=== PATIENT | female | born 1975 | race Caucasian/White ===

== ENCOUNTER → 2017-03-03 | Outpatient (REF) | payer BC | LOC: M LAB REF 12:52 | DX: R30.0 Dysuria (principal) | CPT/HCPCS: 87086 ==

== ENCOUNTER → 2018-01-12 | Outpatient (CLI) | payer BC ==
[2018-01-14 14:13] LABS: QuantiFERON-TB Gold Plus Negative (Negative)
== END ==
LOC: M WUC 11:34
DX: Z51.81 Encounter for therapeutic drug level monitoring (principal); Z79.899 Other long term (current) drug therapy; L40.0 Psoriasis vulgaris
CPT/HCPCS: 36415

== ENCOUNTER → 2018-01-12 | Outpatient (REF) | payer BC | LOC: M LAB REF 16:23 | DX: N39.0 Urinary tract infection, site not specified (principal) ==

== ENCOUNTER → 2018-08-29 | Outpatient (CLI) | payer BC ==
[2018-08-29 20:54] LABS: ALBUMIN 3.4 GM/DL (3.2-5.2); ALT/SGPT 20 U/L (12-78); BILIRUBIN,TOTAL < 0.1 MG/DL (0.2-1.0); BLOOD UREA NITROGEN 10 MG/DL (7-18); CALCIUM LEVEL 8.3 MG/DL (8.5-10.1); CARBON DIOXIDE LEVEL 26 MEQ/L (21-32); CHLORIDE LEVEL 104 MEQ/L (98-107); CREATININE FOR GFR 0.83 MG/DL (0.55-1.30); FERRITIN 37 NG/ML (8-252); FREE T4 0.84 NG/DL (0.76-1.46); GLOMERULAR FILTRATION RATE > 60.0 (>58); GLUCOSE, FASTING 85 MG/DL (70-100); IRON (FE) 51 UG/DL (50-170); POTASSIUM SERUM 3.8 MEQ/L (3.5-5.1); SODIUM LEVEL 140 MEQ/L (136-145); TOTAL PROTEIN 7.3 GM/DL (6.4-8.2)
[2018-08-29 21:09] LABS: BASO # 0.1 10^3/uL (0.0-0.2); BASO % 0.5 % (0.0-1.0); EOS # 0.1 10^3/uL (0.0-0.50); EOS % 1.3 % (0.0-3.0); HEMATOCRIT 40.6 % (36.0-47.0); HEMOGLOBIN 13.3 g/dl (12.0-15.5); LYMPH # 4.5 10^3/uL (1.5-4.5); LYMPH % 40.1 % (24.0-44.0); MEAN CORPUSCULAR HEMOGLOBIN 29.2 pg (27.0-33.0); MEAN CORPUSCULAR HGB CONC 32.8 g/dl (32.0-36.5); MEAN CORPUSCULAR VOLUME 89.2 fl (80.0-96.0); MONO # 0.9 10^3/uL (0.0-0.8); MONO % 7.6 % (0.0-5.0); NEUTROPHILS # 5.6 10^3/uL (1.8-7.7); NEUTROPHILS % 50.2 % (36.0-66.0); PLATELET COUNT, AUTOMATED 256 10^3/uL (150-450); RED BLOOD COUNT 4.55 10^6/uL (4.00-5.40); WHITE BLOOD COUNT 11.2 10^3/uL (4.0-10.0)
== END ==
LOC: M WUC 16:51
PROVIDERS: ATTEND Nurse Practitioner Family
DX: E61.1 Iron deficiency (principal); R79.89 Other specified abnormal findings of blood chemistry

== ENCOUNTER → 2020-09-07 | Outpatient (CLI) | payer BC ==
[~2020-09-07] MED LIST: BUPR-69 PO; BUPR15TASR PO; CITA20TA6 PO; ETAN50SY SC; FERR325T18 PO; HYDR-3713 PO; IBUP-1022 PO; LEVO112T2 PO; OMEP-173 PO; OMEP10CASR PO; PREVTAB2 PO; SYNT112T2 PO; VITA200032 PO; VITAD400CA PO
== END ==
LOC: M LABSMTC 11:23
PROVIDERS: ATTEND Anesthesiology
DX: Z01.812 Encounter for preprocedural laboratory examination (principal)

== ENCOUNTER 2020-09-12 06:19 | Day surgery (SDC) | payer BC ==
[2020-09-12] VITALS (8 sets, daily range): BP systolic 96–136; BP diastolic 64–77; O2SAT 95
[~2020-09-12] VITALS: Ht 162.6 cm; Wt 127.9 kg
[~2020-09-12 06:19] MED LIST changes: -BUPR15TASR PO; -HYDR-3713 PO; -IBUP-1022 PO; +LR 1,000 ML IV ONE; -OMEP-173 PO; -PREVTAB2 PO; -SYNT112T2 PO; -VITA200032 PO; +ceFAZolin SOD 2 GM in IV 1 EA IV ONE
[2020-09-12] MEDS ORDERED: MIDAZOLAM INJ 2MG/2ML VIAL (J2250 PER 1MG) As Ordered ONE (06:51)
[2020-09-12] MEDS ORDERED: fentaNYL 100 MCG/2 ML INJECTION (J3010) As Ordered ONE ×2 (06:52→10:02)
[2020-09-12] MEDS ORDERED: PHENYLephrine 500MCG 5ML (100MCG/ML) SYRINGE As Ordered ONE (06:53)
[2020-09-12] MEDS ORDERED: ePHEDrine SULFATE 25 MG/5 ML(5MG/ML) SYRINGE As Ordered ONE (06:53)
[2020-09-12] MEDS ORDERED: ACETAMINOPHEN 1000MG 100ML IV BTL (OFIRMEV) (J0131 PER 10MG) As Ordered ONE (06:53)
[2020-09-12] MEDS ORDERED: propofoL 200 MG/20 ML VIAL As Ordered ONE (06:55)
[2020-09-12] MEDS ORDERED: ONDANSETRON 4MG/2ML VIAL As Ordered ONE (06:55)
[2020-09-12] MEDS ORDERED: SUGAMMADEX SODIUM 500 MG/5 ML VIAL (BRIDION) As Ordered ONE (06:55)
[2020-09-12] MEDS ORDERED: ROCURONIUM BROMIDE 50 MG/5 ML VIAL As Ordered ONE ×3 (06:55→10:03)
[2020-09-12] MEDS ORDERED: KETOROLAC 60MG 2ML VIAL As Ordered ONE (06:55)
[2020-09-12] MEDS ORDERED: dexameTHASONE 4 MG/ML 1ML VIAL (J1100 PER 1MG) As Ordered ONE (06:55)
[2020-09-12] MEDS ORDERED: LIDOCAINE 2% 100MG/5ML SDV (FOR ANES.) As Ordered ONE (06:55)
[2020-09-12 06:57] LABS: HEMATOCRIT 38.8 % (36.0-47.0); HEMOGLOBIN 12.5 g/dl (12.0-15.5); MEAN CORPUSCULAR HEMOGLOBIN 28.7 pg (27.0-33.0); MEAN CORPUSCULAR HGB CONC 32.2 g/dl (32.0-36.5); PLATELET COUNT, AUTOMATED 236 10^3/uL (150-450); RED BLOOD COUNT 4.36 10^6/uL (4.00-5.40); WHITE BLOOD COUNT 10.6 10^3/uL (4.0-10.0)
[2020-09-12] MEDS ORDERED: METHYLENE BLUE 0.5% (5MG/ML) 10 ML AMP (PROVAYBLUE) As Ordered ONE (07:18)
[2020-09-12] MEDS: CitaloPRAM (CeleXA) 20 MG TAB PO SCH (09:00)
[2020-09-12] MEDS ORDERED: MORPHINE 1MG/ML IN 0.9% NACL 100ML IV BAG As Ordered ONE (10:46)
[2020-09-12] MEDS ORDERED: fentaNYL 100 MCG/2 ML INJECTION (J3010) IV PRN (10:55)
[2020-09-12] MEDS ORDERED: METOCLOPRAMIDE INJ 10MG/2ML VIAL (J2765 PER 1) IV PRN (10:55)
[2020-09-12] MEDS ORDERED: ONDANSETRON 4MG/2ML VIAL IV PRN (10:55)
[2020-09-12] MEDS ORDERED: oxyCODONE 5MG TAB PO PRN (10:55)
[2020-09-12] MEDS ORDERED: MEPERIDINE INJ 25 MG/ML VIAL (J2175) IV PRN (10:55)
[2020-09-12] MEDS ORDERED: LR 1,000 ML IV SCH (10:55)
[2020-09-12] MEDS ORDERED: IBUPROFEN 600MG TAB PO PRN (11:00)
[2020-09-12] MEDS: LR 1,000 ML IV SCH ×2 (11:00→15:13)
[2020-09-12] MEDS ORDERED: MORPHINE 1MG/ML IN 0.9% NACL 100ML IV BAG IV PRN (11:05)
[2020-09-12] MEDS ORDERED: NALOXONE INJ 0.4MG/1ML VIAL (J2310 PER 1MG) IV PRN (11:05)
[2020-09-12] MEDS ORDERED: diphenhydrAMINE 50MG/ML VIAL (J1200) IV PRN (11:05)
[2020-09-12] MEDS ORDERED: NS 1,000 ML IV SCH (11:05)
[2020-09-12] MEDS ORDERED: EPIDURAL/PCA KEYS XX PRN (11:05)
[2020-09-12] MEDS ORDERED: NALBUPHINE HCL 10 MG/ML AMP (J2300) IV PRN (11:05)
[2020-09-12] MEDS ORDERED: D 202000 PO (13:20)
[2020-09-12] MEDS ORDERED: BUPR15TASR PO (13:20)
[2020-09-12] MEDS ORDERED: OMEP-218 PO (13:20)
[2020-09-12] MEDS ORDERED: PREVTAB2 PO (13:20)
[2020-09-12] MEDS ORDERED: SYNT112T2 PO (14:49)
[2020-09-12] MEDS ORDERED: LEVO112T2 PO (14:49)
[2020-09-12] MEDS: OMEPRAZOLE 20 MG CAP PO SCH (15:13)
--- NOTE | 2020-09-12 18:42 | RO ---
OPERATIVE NOTE DATE OF OPERATION: 09/12/2020 PREOPERATIVE DIAGNOSIS AND INDICATIONS FOR SURGERY: Pain, bleeding, and fibroids. POSTOPERATIVE DIAGNOSES: 1. Pain, bleeding, fibroids. 2. Adhesions. PROCEDURES: Robotic-assisted hysterectomy with bilateral salpingo-oophorectomy. SURGEON: Mariana Dallas MD BROADCAST TECHNICIAN: KIM Sanderson ANESTHESIA: General endotracheal anesthesia. BRIEF DESCRIPTION OF PROCEDURE AND FINDINGS: Michelle was brought to the operating room where sufficient general endotracheal anesthesia was induced. She was prepped, draped, and positioned in the usual fashion. The uterine manipulator was placed and the Lim with the ability to back fill was placed. Attention was then turned to the abdomen. A transverse semi-lunar incision was made below the umbilicus, where sharp and blunt dissection was continued to the subcutaneous tissues to the level of the rectus fascia, which was transversely incised, secured with 0-Vicryl retention sutures, and the peritoneum was then entered under direct visualization. The Octavio cannula was then placed and CO2 insufflation was then begun. After adequate CO2 insufflation, the peritoneal cavity was visualized. There were normal shiny peritoneal surfaces throughout with no excrescence, ascites, nor exudate, but there were multiple adhesions of the bowel to the posterior aspect of the uterus and to the lateral pelvic sidewall. There was also a simple left ovarian cyst of no particular unusual appearance. Of course, there were the fibroids as expected. Two left-sided and one right-sided port was placed. The patient was of course in Trendelenburg as is typical for these cases. Attention was turned to the robot work. Working from the robotic console, the adhesions of the descending colon, especially those surrounding the left infundibulopelvic ligament, were brought down. Those connecting to the posterior aspect of the uterus and limiting uterine mobility were brought down using just cold scissors, since, of course, they were quite close to the bowel. Fortunately, they were relatively filmy and not excessively vascular. Having brought them down and isolating the left infundibulopelvic ligament, we then cauterized it and transected it using the bipolar cautery and then again the scissors. We carefully dissected through the mesentery to the round ligament on the left side. This, too, was cauterized and transected. The same procedure was carried out on the right side which did not have as many adhesions, but the infundibulopelvic ligament, the mesentery, and the superior aspect of the broad ligament, and the round ligament were dissected. Then, using the cold scissors, the bladder flap was created anteriorly. We back filled the bladder to confirm location. We then dropped the peritoneum down posteriorly, isolated the uterine vasculature, and carefully cauterized the tissues. This fibroid uterus had recruited some redundant blood supply and this all was carefully cauterized to control the uterine blood supply before we began dissecting through these tissues. Once we had the uterine vasculature cauterized, we then made the colpotomy starting posteriorly where we could see to work, and working around each side laterally, and then starting separately again anteriorly, and then joining that dissection in a circumferential fashion around the base of the cervix. The uterus was then drawn down into the vagina with the attached ovaries and tubes. There was some oozing from the vaginal cuff itself and some of the vaginal blood supply. We using V-Loc suture to control this in three separate pieces and irrigated and cauterized to confirm good hemostasis before ending the procedure, removing the instruments and the CO2. We did let the pressure down to confirm that we had good hemostasis before completely letting the CO2 out and of course removing the instruments and the trocars. We then closed the wounds. The umbilical fascia was closed with a 0-Vicryl retention suture. The skin at all four wounds was reapproximated with subcuticular stitches of 3-0 Vicryl with good approximation and hemostasis achieved. Dry sterile dressings were then applied. ESTIMATED BLOOD LOSS: About 125 mL. FLUID REPLACEMENT: Crystalloid. COMPLICATIONS: None. CONDITION AND DISPOSITION: Michelle tolerated the procedure well and was recovering in the recovery room in good condition.
[2020-09-12] MEDS ORDERED: SIMETHICONE 80MG CHEW TAB PO PRN (20:45)
[2020-09-12] MEDS: buPROPion **SR TABLET** (ZYBAN) 150MG PO SCH (21:02)
[2020-09-13] VITALS: BP 111/56
[2020-09-13] MEDS ORDERED: UNRESOLVED CLARIFICATION ENTRY XX SCH (00:01)
[2020-09-13] MEDS: LR 1,000 ML IV SCH (00:33)
[2020-09-13 04:00] VITALS: BP 114/56
[2020-09-13] MEDS ORDERED: LEVOTHYROXINE 112MCG TABLET (0.112MG) PO SCH (06:00)
[2020-09-13] MEDS ORDERED: NORCO, ANEXSIA 5/325MG TABLET (HYDROcodone/ACETAMINOPHEN) PO PRN (06:00)
[2020-09-13 06:58] LABS: HEMATOCRIT 32.2 % (36.0-47.0); HEMOGLOBIN 10.1 g/dl (12.0-15.5); MEAN CORPUSCULAR HEMOGLOBIN 28.7 pg (27.0-33.0); MEAN CORPUSCULAR HGB CONC 31.4 g/dl (32.0-36.5); MEAN CORPUSCULAR VOLUME 91.5 fl (80.0-96.0); PLATELET COUNT, AUTOMATED 191 10^3/uL (150-450); RED BLOOD COUNT 3.52 10^6/uL (4.00-5.40); WHITE BLOOD COUNT 12.4 10^3/uL (4.0-10.0)
[2020-09-13 08:00] VITALS: BP 122/68
[2020-09-13] MEDS: OMEPRAZOLE 20 MG CAP PO SCH (09:04)
[2020-09-13] MEDS: buPROPion **SR TABLET** (ZYBAN) 150MG PO SCH (09:04)
[2020-09-13 12:00] VITALS: BP 124/74
[2020-09-13] MEDS: CitaloPRAM (CeleXA) 20 MG TAB PO SCH (12:01)
[2020-09-13] MEDS ORDERED: IBUP-1022 PO (12:34)
[2020-09-13] MEDS ORDERED: HYDR-3713 PO (12:34)
== END 2020-09-13 14:50 | disposition home or self-care (01) ==
LOC: M SDC 06:19 → M PED 12:30 → UNDOFXSDCSVC 12:31 → M SDC 09-13 14:50
PROVIDERS: ATTEND Obstetrics & Gynecology
DX: R10.2 Pelvic and perineal pain (principal); N93.9 Abnormal uterine and vaginal bleeding, unspecified; D25.9 Leiomyoma of uterus, unspecified; N73.6 Female pelvic peritoneal adhesions (postinfective); J45.909 Unspecified asthma, uncomplicated; K21.9 Gastro-esophageal reflux disease without esophagitis; G47.30 Sleep apnea, unspecified; E03.9 Hypothyroidism, unspecified; F41.9 Anxiety disorder, unspecified; F32.9 Major depressive disorder, single episode, unspecified; Z79.899 Other long term (current) drug therapy
CPT/HCPCS: 36415; 58571; 81025; 85027; 86850; 86900; 86901; 88307; 96360; 96361; J0131; J0690; J1100; J1885; J2250; J2370; J2405; J3010; S2900

== ENCOUNTER → 2021-05-14 | Outpatient (REF) | payer BC ==
[~2021-05-14] MED LIST changes: +BUPR15TASR PO; +HYDR-3713 PO; +IBUP-1022 PO; -LR 1,000 ML IV ONE; +OMEP-173 PO; +PREVTAB2 PO; +SYNT112T2 PO; +VITA200032 PO; -ceFAZolin SOD 2 GM in IV 1 EA IV ONE
[2021-05-14 17:01] LABS: BASO # 0.1 10^3/uL (0.0-0.2); BASO % 0.9 % (0.0-1.0); EOS # 0.1 10^3/uL (0.0-0.5); EOS % 1.5 % (0.0-3.0); HEMATOCRIT 42.6 % (36.0-47.0); HEMOGLOBIN 13.7 g/dl (12.0-15.5); LYMPH # 3.9 10^3/uL (1.5-5.0); LYMPH % 48.3 % (24.0-44.0); MEAN CORPUSCULAR HEMOGLOBIN 28.6 pg (27.0-33.0); MEAN CORPUSCULAR HGB CONC 32.2 g/dl (32.0-36.5); MEAN CORPUSCULAR VOLUME 88.9 fl (80.0-96.0); MONO # 0.6 10^3/uL (0.0-0.8); MONO % 7.6 % (2.0-8.0); NEUTROPHILS # 3.3 10^3/uL (1.5-8.5); NEUTROPHILS % 41.5 % (36.0-66.0); PLATELET COUNT, AUTOMATED 233 10^3/uL (150-450); RED BLOOD COUNT 4.79 10^6/uL (4.00-5.40)
[2021-05-14 17:03] LABS: ALBUMIN 3.8 GM/DL (3.2-5.2); ALT/SGPT 65 U/L (12-78); BILIRUBIN,TOTAL 0.2 MG/DL (0.2-1.0); BLOOD UREA NITROGEN 11 MG/DL (7-18); C REACTIVE PROTEIN QUANTITATIV 0.64 MG/DL (0.00-0.30); CALCIUM LEVEL 9.3 MG/DL (8.5-10.1); CARBON DIOXIDE LEVEL 33 MEQ/L (21-32); CHLORIDE LEVEL 102 MEQ/L (98-107); CREATININE FOR GFR 0.78 MG/DL (0.55-1.30); GLOMERULAR FILTRATION RATE > 60.0 (>58); GLUCOSE, FASTING 81 MG/DL (70-100); POTASSIUM SERUM 4.3 MEQ/L (3.5-5.1); RHEUMATOID FACTOR QUANT 12.5 IU/ML (<15.0); SODIUM LEVEL 137 MEQ/L (136-145); TOTAL PROTEIN 7.7 GM/DL (6.4-8.2)
[2021-05-14 19:23] LABS: ERYTHROCYTE SEDIMENTATION RATE 16 mm/hr (0-20)
== END ==
LOC: M SFHCRHEU 13:09
PROVIDERS: ATTEND Internal Medicine Rheumatology
DX: L40.8 Other psoriasis (principal); M25.50 Pain in unspecified joint

== ENCOUNTER → 2025-02-12 | Outpatient (CLI) | payer BC ==
[~2025-02-12] MED LIST changes: -IBUP-1022 PO; +IBUP600T42 PO
[2025-02-12 14:57] LABS: PLATELET COUNT, AUTOMATED 235 10^3/uL (150-450)
[2025-02-12 15:04] LABS: ALT/SGPT 37 U/L (7.0-40); AST/SGOT 31 U/L (<34); CALCIUM LEVEL 9.0 MG/DL (8.5-10.1); CARBON DIOXIDE LEVEL 30 MMOL/L (20-31); CHLORIDE LEVEL 99 MMOL/L (98-107); CHOLESTEROL LEVEL 192 MG/DL (<200); CHOLESTEROL RISK RATIO 3.62 (<5); CREATININE FOR GFR 0.76 MG/DL (0.55-1.30); FREE T4 1.14 NG/DL (0.89-1.76); GLOMERULAR FILTRATION RATE > 90.0 (>58); LDL CHOLESTEROL 100.8 MG/DL (<100); NON-HDL-C 139.0 MG/DL; POTASSIUM SERUM 3.9 MMOL/L (3.5-5.1); SODIUM LEVEL 137 MMOL/L (136-145); TRIGLYCERIDES LEVEL 191 MG/DL (<150)
[2025-02-12 15:05] LABS: IRON (FE) 126 UG/DL (50-170); PERCENT SATURATION 40.9 % (13.2-45.0)
[2025-02-12 15:26] LABS: ESTIMATED AVERAGE GLUCOSE 126.0 MG/DL (60-110)
== END ==
LOC: M WUC 11:32
PROVIDERS: ATTEND Physician Assistant Medical
DX: R73.03 Prediabetes (principal)